=== PATIENT | female | born 1965 | race Caucasian/White ===

== ENCOUNTER 2018-02-08 06:08 | Day surgery (SDC) | payer OTHER ==
[2018-02-08] MEDS ORDERED: MIDAZOLAM 1 MG/ML 2 ML INJ ×2 (08:48)
[2018-02-08] MEDS ORDERED: FENTAnyl 50 MCG/ML VIAL (08:48)
== END 2018-02-08 14:10 | disposition home or self-care (01) ==
LOC: GIL 06:08
DX: Z12.11 Encounter for screening for malignant neoplasm of colon (principal); D12.3 Benign neoplasm of transverse colon; K64.8 Other hemorrhoids; J45.909 Unspecified asthma, uncomplicated
CPT/HCPCS: 45380; 84703; 88305